=== PATIENT | male | born 1995 | race Caucasian/White ===

== ENCOUNTER 2021-07-22 12:59 | Emergency (ER) | payer OTHER, SELFPAY ==
--- NOTE | ~2021-07-22 | XR_ITS ---
EXAMINATION: XR CHEST CLINICAL INFORMATION: SOB and cough in COMPARISON: None TECHNIQUE: 2 views of the chest were obtained. FINDINGS: No significant abnormality is noted involving the heart, lungs, mediastinum, bony thorax or soft tissues. XR/XR chest 2V IMPRESSION: Unremarkable chest examination.
[2021-07-22 14:19] VITALS: BP 134/83; PULSE 95; RESP 16; TEMP 36.6; O2SAT 98; BMI 33.0
--- NOTE | 2021-07-22 14:21 | ECG_ITS ---
Test Reason : SOB Blood Pressure : / mmHG Vent. Rate : 086 BPM Atrial Rate : 086 BPM P-R Int : 136 ms QRS Dur : 090 ms QT Int : 352 ms P-R-T Axes : 071 059 050 degrees QTc Int : 421 ms Normal sinus rhythm with sinus arrhythmia Normal ECG When compared with ECG of 05-NOV-2019 06:26, [place] interval has decreased Referred By: Carla Vance Electronically Signed By:DAYDAY PINEDA
--- NOTE | 2021-07-22 14:22 | ED_ITS ---
HPI - SOB/Dyspnea General Chief Complaint: Dyspnea <CANDY Huggins - Last Filed: 07/22/21 14:24> Stated Complaint: ASTHMA CHEST TIGHTNESS <CANDY Huggins Last Filed: 07/22/21 14:24> Time Seen by Provider: 07/22/21 14:19 <CANDY Huggins - Last Filed: 07/22/21 14:24> Source: patient <Kassidy Cruz DO - Last Filed: 07/22/21 21:54> Mode of arrival: ambulatory <Kassidy Cruz DO - Last Filed: 07/22/21 21:54> Limitations: no limitations <Kassidy Cruz DO - Last Filed: 07/22/21 21:54> History of Present Illness MD elicited complaint: shortness of breath and asthma attack <Kassidy Cruz DO - Last Filed: 07/22/21 21:54> Pertinent past history: asthma <Kassidy Cruz DO - Last Filed: 07/22/21 21:54> Onset (ago): day(s) (Thursday) <Kassidy Cruz DO - Last Filed: 07/22/21 21:54> Timing: constant and progressively worsening <Kassidy Cruz DO - Last Filed: 07/22/21 21:54> Severity: moderate <Kassidy Cruz DO - Last Filed: 07/22/21 21:54> Exacerbating factors: exertion and coughing <Kassidy Cruz DO - Last Filed: 07/22/21 21:54> Relieving factors: nothing <Kassidy Cruz DO - Last Filed: 07/22/21 21:54> Known history of: asthma <Kassidy Cruz DO - Last Filed: 07/22/21 21:54> Associated symptoms: cough and wheezing <Kassidy Cruz DO - Last Filed: 07/22/21 21:54> Treatment prior to arrival: other (tried his INh with little relief) <Kassidy Cruz DO - Last Filed: 07/22/21 21:54> Related Data Home Medications: Previous Rx's Medication Instructions Recorded albuterol sulfate 2.5 mg INHALATION Q4-6H PRN #75 ml 07/22/21 prednisone 20 mg tablet 60 mg PO DAILY 5 Days #15 tab 07/22/21 <CANDY Huggins - Last Filed: 07/22/21 14:24> Allergies/Adverse Reactions: Allergies Allergy/AdvReac Type Severity Reaction Status Date / Time No Known Allergies Allergy Unverified 07/26/20 16:13 [No Known Allergies*] <CANDY Huggins - Last Filed: 07/22/21 14:24> Review of Systems Review of Systems: Constitutional : No Fever, No Chills ENT/Mouth : No Hoarseness, No sore throat, No Rhinorrhea Eyes: No Redness, No Discharge, No Vision Changes Cardiovascular : pos Chest tightness, positive SOB, positive Dyspnea on Exertion, No Edema Respiratory : positive Cough, No Sputum, positive Wheezing, Gastrointestinal : No Nausea, No Vomiting, No Diarrhea, No abdominal Pain Genitourinary : No Dysuria, No Hematuria Musculoskeletal : No joint pain, No Myalgias Skin : No rash Neuro : No Weakness, No Numbness, No Headache Psych : No anxiety, depression Heme/Lymph: No Bruising, No Bleeding Endocrine : No Polyuria, No Polydipsia All other systems reviewed and are negative <Kassidy Cruz DO - Last Filed: 07/22/21 21:54> [facility] Past Medical History Attestation statement: The following information was validated with the patient. <Kassidy Cruz DO - Last Filed: 07/22/21 21:54> Medical History: Medical History Asthma <CANDY Huggins - Last Filed: 07/22/21 14:24> Social History Social History: Social History (Updated 07/22/21 @ 20:19 by Kassidy Cruz DO) Alcohol intake: current Alcohol intake frequency: holidays/special occasions on ly Patient Tobacco Use Status: Never used Tobacco Use of substances other than those prescribed or required for medical reasons: Yes Substance Use Type: Marijuana Advance Directives: No <CANDY Huggins - Last Filed: 07/22/21 14:24> Physical Exam Vital Signs: Vital Signs: Last Vital Signs Temp 97.5 F 07/22/21 19:13 Pulse 114 H 07/23/21 00:23 Resp 21 H 07/22/21 22:50 BP 121/65 07/23/21 00:23 Pulse Ox 94 07/23/21 00:23 Body Mass Index 33.0 <CANDY Huggins - Last Filed: 07/22/21 14:24> Vital Signs: Last Vital Signs Temp 97.5 F 07/22/21 19:13 Pulse 114 H 07/23/21 00:23 Resp 21 H 07/22/21 22:50 BP 121/65 07/23/21 00:23 Pulse Ox 94 07/23/21 00:23 Body Mass Index 33.0 <Kassidy Cruz DO - Last Filed: 07/22/21 21:54> Vital Signs: Last Vital Signs Temp 97.5 F 07/22/21 19:13 Pulse 114 H 07/23/21 00:23 Resp 21 H 07/22/21 22:50 BP 121/65 07/23/21 00:23 Pulse Ox 94 07/23/21 00:23 Body Mass Index 33.0 <Sydnie Cotto MD - Last Filed: 07/23/21 01:19> Appearance: Alert. Oriented X3. No acute distress. Eyes: Pupils equal, round and reactive to light. ENT: Pharynx normal. Neck: Normal inspection. Neck supple. CVS: Normal heart rate and rhythm. Pulses normal. Respiratory: No respiratory distress. Breath sounds decreased throughout with wheezes Abdomen: Soft and non-tender. Skin: Skin warm and dry. Normal skin color. Normal skin turgor. Extremities: No lower extremity edema. No calf ttp Neuro: Oriented X 3. No motor deficit. No sensory deficit. <Kassidy Cruz DO - Last Filed: 07/22/21 21:54> Course Course Course Narrative: 14:20pm - 26-year-old male with a past medical history of asthma presenting to the ED with complaints of body aches, chills, cough, wheezing, shortness of breath and chest tightness for the past few days worse today. Denies recent travel or sick contacts. On exam patient is in mild respiratory distress due to decreased breath sounds and inspiratory and expiratory wheezing throughout although no accessory muscle usage/trismus/drooling/stridor noted. Otherwise no other acute distress. Vital signs are stable within normal limits. His oxygen saturations 98% on room air. Therefore at this time patient was sent back to the waiting room and he will be evaluated in the main ED. Labs, chest x-ray and EKG ordered at this time along with IV steroids and 1 hour long breathing treatment. <CANDY Huggins - Last Filed: 07/22/21 14:24> 14:20pm - 26-year-old male with a past medical history of asthma presenting to the ED with complaints of body aches, chills, cough, wheezing, shortness of breath and chest tightness for the past few days worse today. Denies recent travel or sick contacts. On exam patient is in mild respiratory distress due to decreased breath sounds and inspiratory and expiratory wheezing throughout although no accessory muscle usage/trismus/drooling/stridor noted. Otherwise no other acute distress. Vital signs are stable within normal limits. His oxygen saturations 98% on room air. Therefore at this time patient was sent back to the waiting room and he will be evaluated in the main ED. Labs, chest x-ray and EKG ordered at this time along with IV steroids and 1 hour long breathing treatment. he is improved 95% on RA, he is still tachycardic from the neb treatment signed out pending improvement to Dr. Cotto <Kassidy Cruz DO - Last Filed: 07/22/21 21:54> Reevaluation(s) Reevaluation #1: On re-evaluation patient is feeling much better and on review of all investigations as well as treatments patient is stable for discharge. <Sydnie Cotto MD - Last Filed: 07/23/21 01:19> MDM - SOB/Dyspnea MDM Narrative Medical decision making narrative: 26 yo male with hx of asthma no prior intubations here with URI and asthma since Thursday he is not vaccinated - at this time will need labs, CXR, COVID swab, hour long neb, IV steroids - dispo per results and improvement <Kassidy Cruz DO - Last Filed: 07/22/21 21:54> Lab Data Result diagrams: : 07/22/21 14:33 07/22/21 14:33 <CANDY Huggins - Last Filed: 07/22/21 14:24> Labs: Lab Results 07/22/21 07/22/21 07/22/21 Range/Units 14:33 14:33 14:33 WBC 7.7 (4.8-10.8) X10*3/uL RBC 4.90 (4.60-5.80) X10*6/uL Hgb 14.3 (14.0-18.0) g/dl Hct 42.4 (42-52) % MCV 86.5 (80-98) fL MCH 29.2 (27.0-33.0) pg MCHC 33.7 (31.0-36.0) g/dl RDW 12.5 (11.0-16.0) % Plt Count 275 (160-400) X10*3/uL MPV 10.4 (9.4-12.4) fL Immature Gran % (Auto) 0.3 (0.0-0.4) % Neut % (Auto) 77.8 H (45-73) % Lymph % (Auto) 12.3 L (20-40) % [place] % (Auto) 6.8 (2-11) % Eos % (Auto) 2.7 (0-4) % Baso % (Auto) 0.1 (0-2) % Lymph # (Auto) 1.0 L (1.2-4.9) X10*3/uL [place] # (Auto) 0.5 (0.1-1.2) X10*3/uL Eos # (Auto) 0.2 (0.0-0.4) X10*3/uL Baso # (Auto) 0.0 (0.0-0.2) X10*3/uL Abs Immat Gran (auto) 0.02 (0.00-0.03) X10*3/uL Absolute Neuts (auto) 6.0 (2.0-8.3) X10*3/uL Absolute Nucleated RBC 0.000 (0.0-0.012) X10*3/uL Nucleated RBC % (auto) 0.0 (0.0-0.2) /100WBC Hold Purple Top PT 12.3 (9.9-13.0) SEC INR 1.1 (0.9-1.1) Sodium 141 (135-145) mmol/L Potassium 4.1 (3.3-5.1) mmol/L Chloride 107 (96-108) mmol/L Carbon Dioxide 27 (22-29) mmol/L Anion Gap 11 L (12-20) BUN 8 L (9-16) mg/dL Creatinine 0.87 (0.5-1.4) mg/dL Estim Creat Clear Calc 134.9 Estimated GFR > 60 Random Glucose 111 (60-115) mg/dL Calcium 10.2 (8.4-10.2) mg/dL Magnesium 2.3 (1.6-2.6) mg/dL Total Bilirubin 0.5 (0.0-1.0) mg/dL AST 25 (5-37) U/L ALT 31 (0-40) U/L Alkaline Phosphatase 59 (39-117) U/L Total Protein 8.2 H (6.5-8.0) g/dL Albumin 4.6 (3.5-5.0) g/dL Urine Color Urine Appearance Urine pH (5.0-8.0) Ur Specific [place] (1.005-1.025) Urine Protein (NEG-TRACE) MG/DL Urine Glucose (UA) (NEG) MG/DL Urine Ketones (NEG) MG/DL Urine Blood (NEG) Urine Nitrite (NEG) Ur Leukocyte Esterase (NEG) COVID-19 (ENZO) (Negative) COVID-19 Clin Com 07/22/21 07/22/21 07/23/21 Range/Units 14:33 20:18 00:45 WBC (4.8-10.8) X10*3/uL RBC (4.60-5.80) X10*6/uL Hgb (14.0-18.0) g/dl Hct (42-52) % MCV (80-98) fL MCH (27.0-33.0) pg MCHC (31.0-36.0) g/dl RDW (11.0-16.0) % Plt Count (160-400) X10*3/uL MPV (9.4-12.4) fL Immature Gran % (Auto) (0.0-0.4) % Neut % (Auto) (45-73) % Lymph % (Auto) (20-40) % [place] % (Auto) (2-11) % Eos % (Auto) (0-4) % Baso % (Auto) (0-2) % Lymph # (Auto) (1.2-4.9) X10*3/uL [place] # (Auto) (0.1-1.2) X10*3/uL Eos # (Auto) (0.0-0.4) X10*3/uL Baso # (Auto) (0.0-0.2) X10*3/uL Abs Immat Gran (auto) (0.00-0.03) X10*3/uL Absolute Neuts (auto) (2.0-8.3) X10*3/uL Absolute Nucleated RBC (0.0-0.012) X10*3/uL Nucleated RBC % (auto) (0.0-0.2) /100WBC Hold Purple Top SEE NOTE PT (9.9-13.0) SEC INR (0.9-1.1) Sodium (135-145) mmol/L Potassium (3.3-5.1) mmol/L Chloride (96-108) mmol/L Carbon Dioxide (22-29) mmol/L Anion Gap (12-20) BUN (9-16) mg/dL Creatinine (0.5-1.4) mg/dL Estim Creat Clear Calc Estimated GFR Random Glucose (60-115) mg/dL Calcium (8.4-10.2) mg/dL Magnesium (1.6-2.6) mg/dL Total Bilirubin (0.0-1.0) mg/dL AST (5-37) U/L ALT (0-40) U/L Alkaline Phosphatase (39-117) U/L Total Protein (6.5-8.0) g/dL Albumin (3.5-5.0) g/dL Urine Color YELLOW Urine Appearance HAZY Urine pH 6.0 (5.0-8.0) Ur Specific [place] >= 1.030 H (1.005-1.025) Urine Protein NEG (NEG-TRACE) MG/DL Urine Glucose (UA) NEG (NEG) MG/DL Urine Ketones NEG (NEG) MG/DL Urine Blood NEG (NEG) Urine Nitrite NEG (NEG) Ur Leukocyte Esterase NEG (NEG) COVID-19 (ENZO) Negative (Negative) COVID-19 Clin Com See Note <CANDY Huggins - Last Filed: 07/22/21 14:24> Lab Results 07/22/21 07/22/21 07/22/21 Range/Units 14:33 14:33 14:33 WBC 7.7 (4.8-10.8) X10*3/uL RBC 4.90 (4.60-5.80) X10*6/uL Hgb 14.3 (14.0-18.0) g/dl Hct 42.4 (42-52) % MCV 86.5 (80-98) fL MCH 29.2 (27.0-33.0) pg MCHC 33.7 (31.0-36.0) g/dl RDW 12.5 (11.0-16.0) % Plt Count 275 (160-400) X10*3/uL MPV 10.4 (9.4-12.4) fL Immature Gran % (Auto) 0.3 (0.0-0.4) % Neut % (Auto) 77.8 H (45-73) % Lymph % (Auto) 12.3 L (20-40) % [place] % (Auto) 6.8 (2-11) % Eos % (Auto) 2.7 (0-4) % Baso % (Auto) 0.1 (0-2) % Lymph # (Auto) 1.0 L (1.2-4.9) X10*3/uL [place] # (Auto) 0.5 (0.1-1.2) X10*3/uL Eos # (Auto) 0.2 (0.0-0.4) X10*3/uL Baso # (Auto) 0.0 (0.0-0.2) X10*3/uL Abs Immat Gran (auto) 0.02 (0.00-0.03) X10*3/uL Absolute Neuts (auto) 6.0 (2.0-8.3) X10*3/uL Absolute Nucleated RBC 0.000 (0.0-0.012) X10*3/uL Nucleated RBC % (auto) 0.0 (0.0-0.2) /100WBC Hold Purple Top PT 12.3 (9.9-13.0) SEC INR 1.1 (0.9-1.1) Sodium 141 (135-145) mmol/L Potassium 4.1 (3.3-5.1) mmol/L Chloride 107 (96-108) mmol/L Carbon Dioxide 27 (22-29) mmol/L Anion Gap 11 L (12-20) BUN 8 L (9-16) mg/dL Creatinine 0.87 (0.5-1.4) mg/dL Estim Creat Clear Calc 134.9 Estimated GFR > 60 Random Glucose 111 (60-115) mg/dL Calcium 10.2 (8.4-10.2) mg/dL Magnesium 2.3 (1.6-2.6) mg/dL Total Bilirubin 0.5 (0.0-1.0) mg/dL AST 25 (5-37) U/L ALT 31 (0-40) U/L Alkaline Phosphatase 59 (39-117) U/L Total Protein 8.2 H (6.5-8.0) g/dL Albumin 4.6 (3.5-5.0) g/dL Urine Color Urine Appearance Urine pH (5.0-8.0) Ur Specific [place] (1.005-1.025) Urine Protein (NEG-TRACE) MG/DL Urine Glucose (UA) (NEG) MG/DL Urine Ketones (NEG) MG/DL Urine Blood (NEG) Urine Nitrite (NEG) Ur Leukocyte Esterase (NEG) COVID-19 (ENZO) (Negative) COVID-19 Clin Com 07/22/21 07/22/21 07/23/21 Range/Units 14:33 20:18 00:45 WBC (4.8-10.8) X10*3/uL RBC (4.60-5.80) X10*6/uL Hgb (14.0-18.0) g/dl Hct (42-52) % MCV (80-98) fL MCH (27.0-33.0) pg MCHC (31.0-36.0) g/dl RDW (11.0-16.0) % Plt Count (160-400) X10*3/uL MPV (9.4-12.4) fL Immature Gran % (Auto) (0.0-0.4) % Neut % (Auto) (45-73) % Lymph % (Auto) (20-40) % [place] % (Auto) (2-11) % Eos % (Auto) (0-4) % Baso % (Auto) (0-2) % Lymph # (Auto) (1.2-4.9) X10*3/uL [place] # (Auto) (0.1-1.2) X10*3/uL Eos # (Auto) (0.0-0.4) X10*3/uL Baso # (Auto) (0.0-0.2) X10*3/uL Abs Immat Gran (auto) (0.00-0.03) X10*3/uL Absolute Neuts (auto) (2.0-8.3) X10*3/uL Absolute Nucleated RBC (0.0-0.012) X10*3/uL Nucleated RBC % (auto) (0.0-0.2) /100WBC Hold Purple Top SEE NOTE PT (9.9-13.0) SEC INR (0.9-1.1) Sodium (135-145) mmol/L Potassium (3.3-5.1) mmol/L Chloride (96-108) mmol/L Carbon Dioxide (22-29) mmol/L Anion Gap (12-20) BUN (9-16) mg/dL Creatinine (0.5-1.4) mg/dL Estim Creat Clear Calc Estimated GFR Random Glucose (60-115) mg/dL Calcium (8.4-10.2) mg/dL Magnesium (1.6-2.6) mg/dL Total Bilirubin (0.0-1.0) mg/dL AST (5-37) U/L ALT (0-40) U/L Alkaline Phosphatase (39-117) U/L Total Protein (6.5-8.0) g/dL Albumin (3.5-5.0) g/dL Urine Color YELLOW Urine Appearance HAZY Urine pH 6.0 (5.0-8.0) Ur Specific [place] >= 1.030 H (1.005-1.025) Urine Protein NEG (NEG-TRACE) MG/DL Urine Glucose (UA) NEG (NEG) MG/DL Urine Ketones NEG (NEG) MG/DL Urine Blood NEG (NEG) Urine Nitrite NEG (NEG) Ur Leukocyte Esterase NEG (NEG) COVID-19 (ENZO) Negative (Negative) COVID-19 Clin Com See Note <Kassidy Cruz, DO - Last Filed: 07/22/21 21:54> Lab Results 07/22/21 07/22/21 07/22/21 Range/Units 14:33 14:33 14:33 WBC 7.7 (4.8-10.8) X10*3/uL RBC 4.90 (4.60-5.80) X10*6/uL Hgb 14.3 (14.0-18.0) g/dl Hct 42.4 (42-52) % MCV 86.5 (80-98) fL MCH 29.2 (27.0-33.0) pg MCHC 33.7 (31.0-36.0) g/dl RDW 12.5 (11.0-16.0) % Plt Count 275 (160-400) X10*3/uL MPV 10.4 (9.4-12.4) fL Immature Gran % (Auto) 0.3 (0.0-0.4) % Neut % (Auto) 77.8 H (45-73) % Lymph % (Auto) 12.3 L (20-40) % [place] % (Auto) 6.8 (2-11) % Eos % (Auto) 2.7 (0-4) % Baso % (Auto) 0.1 (0-2) % Lymph # (Auto) 1.0 L (1.2-4.9) X10*3/uL [place] # (Auto) 0.5 (0.1-1.2) X10*3/uL Eos # (Auto) 0.2 (0.0-0.4) X10*3/uL Baso # (Auto) 0.0 (0.0-0.2) X10*3/uL Abs Immat Gran (auto) 0.02 (0.00-0.03) X10*3/uL Absolute Neuts (auto) 6.0 (2.0-8.3) X10*3/uL Absolute Nucleated RBC 0.000 (0.0-0.012) X10*3/uL Nucleated RBC % (auto) 0.0 (0.0-0.2) /100WBC Hold Purple Top PT 12.3 (9.9-13.0) SEC INR 1.1 (0.9-1.1) Sodium 141 (135-145) mmol/L Potassium 4.1 (3.3-5.1) mmol/L Chloride 107 (96-108) mmol/L Carbon Dioxide 27 (22-29) mmol/L Anion Gap 11 L (12-20) BUN 8 L (9-16) mg/dL Creatinine 0.87 (0.5-1.4) mg/dL Estim Creat Clear Calc 134.9 Estimated GFR > 60 Random Glucose 111 (60-115) mg/dL Calcium 10.2 (8.4-10.2) mg/dL Magnesium 2.3 (1.6-2.6) mg/dL Total Bilirubin 0.5 (0.0-1.0) mg/dL AST 25 (5-37) U/L ALT 31 (0-40) U/L Alkaline Phosphatase 59 (39-117) U/L Total Protein 8.2 H (6.5-8.0) g/dL Albumin 4.6 (3.5-5.0) g/dL Urine Color Urine Appearance Urine pH (5.0-8.0) Ur Specific [place] (1.005-1.025) Urine Protein (NEG-TRACE) MG/DL Urine Glucose (UA) (NEG) MG/DL Urine Ketones (NEG) MG/DL Urine Blood (NEG) Urine Nitrite (NEG) Ur Leukocyte Esterase (NEG) COVID-19 (ENZO) (Negative) COVID-19 Clin Com 07/22/21 07/22/21 07/23/21 Range/Units 14:33 20:18 00:45 WBC (4.8-10.8) X10*3/uL RBC (4.60-5.80) X10*6/uL Hgb (14.0-18.0) g/dl Hct (42-52) % MCV (80-98) fL MCH (27.0-33.0) pg MCHC (31.0-36.0) g/dl RDW (11.0-16.0) % Plt Count (160-400) X10*3/uL MPV (9.4-12.4) fL Immature Gran % (Auto) (0.0-0.4) % Neut % (Auto) (45-73) % Lymph % (Auto) (20-40) % [place] % (Auto) (2-11) % Eos % (Auto) (0-4) % Baso % (Auto) (0-2) % Lymph # (Auto) (1.2-4.9) X10*3/uL [place] # (Auto) (0.1-1.2) X10*3/uL Eos # (Auto) (0.0-0.4) X10*3/uL Baso # (Auto) (0.0-0.2) X10*3/uL Abs Immat Gran (auto) (0.00-0.03) X10*3/uL Absolute Neuts (auto) (2.0-8.3) X10*3/uL Absolute Nucleated RBC (0.0-0.012) X10*3/uL Nucleated RBC % (auto) (0.0-0.2) /100WBC Hold Purple Top SEE NOTE PT (9.9-13.0) SEC INR (0.9-1.1) Sodium (135-145) mmol/L Potassium (3.3-5.1) mmol/L Chloride (96-108) mmol/L Carbon Dioxide (22-29) mmol/L Anion Gap (12-20) BUN (9-16) mg/dL Creatinine (0.5-1.4) mg/dL Estim Creat Clear Calc Estimated GFR Random Glucose (60-115) mg/dL Calcium (8.4-10.2) mg/dL Magnesium (1.6-2.6) mg/dL Total Bilirubin (0.0-1.0) mg/dL AST (5-37) U/L ALT (0-40) U/L Alkaline Phosphatase (39-117) U/L Total Protein (6.5-8.0) g/dL Albumin (3.5-5.0) g/dL Urine Color YELLOW Urine Appearance HAZY Urine pH 6.0 (5.0-8.0) Ur Specific [place] >= 1.030 H (1.005-1.025) Urine Protein NEG (NEG-TRACE) MG/DL Urine Glucose (UA) NEG (NEG) MG/DL Urine Ketones NEG (NEG) MG/DL Urine Blood NEG (NEG) Urine Nitrite NEG (NEG) Ur Leukocyte Esterase NEG (NEG) COVID-19 (ENZO) Negative (Negative) COVID-19 Clin Com See Note <Sydnie Cotto MD - Last Filed: 07/23/21 01:19> ECG Data Attestation: I personally reviewed and interpreted this ECG as follows: <Kassidy Cruz DO - Last Filed: 07/22/21 21:54> ECG interpretation date: 07/22/21 <Kassidy Cruz DO - Last Filed: 07/22/21 21:54> ECG interpretation time: 20:42 <Kassidy Cruz DO - Last Filed: 07/22/21 21:54> Interpretation: Rate: 86 Rhythm: NSR [place]: normal Normal P waves. Normal GAVI. Normal QRS complex. ST T wave : normal no NATY qTC: normal prior studies: no acute ischemia The study has been interpreted contemporaneously by me. . <Kassidy Cruz DO - Last Filed: 07/22/21 21:54> Discharge Plan Discharge Clinical Impression: Asthma with exacerbation Qualifiers: Asthma severity: moderate Asthma persistence: persistent Qualified Code(s): J45.41 - Moderate persistent asthma with (acute) exacerbation <CANDY Huggins - Last Filed: 07/22/21 14:24> Patient Disposition: Home, Self-Care <CANDY Huggins - Last Filed: 07/22/21 14:24> Instructions: Asthma (ED) <CANDY Huggins - Last Filed: 07/22/21 14:24> Additional Instructions: YOUR COVID TEST WAS NEGATIVE <CANDY Huggins - Last Filed: 07/22/21 14:24> Prescriptions: New albuterol sulfate 2.5 mg /3 mL (0.083 %) solution for nebulization 2.5 mg inhalation Q4-6H PRN (Reason: bronchospasm) Qty: 75 RF: 0 prednisone 20 mg tablet 60 mg PO DAILY 5 Days Qty: 15 RF: 0 <CANDY Huggins - Last Filed: 07/22/21 14:24> Referrals: Physician,Unknown [Primary Care Provider] - 2 days <CANDY Huggins - Last Filed: 07/22/21 14:24> Stand Alone Forms: Work/School Release <CANDY Huggins - Last Filed: 07/22/21 14:24>
[2021-07-22 14:41] LABS: MANUAL DIFF FLAG NO
[2021-07-22 14:43] LABS: Basophils Percent Auto 0.1 % (0-2); Eosinophils Absolute Auto 0.2 X10*3/uL (0.0-0.4); Eosinophils Percent Auto 2.7 % (0-4); Hematocrit 42.4 % (42-52); Hemoglobin 14.3 g/dl (14.0-18.0); Imm Gran Abs Auto 0.02 X10*3/uL (0.00-0.03); Imm Gran Pct Auto 0.3 % (0.0-0.4); Lymphocytes Percent Auto 12.3 % (20-40); Mean Corpuscular HGB Conc 33.7 g/dl (31.0-36.0); Mean Corpuscular Hemoglobin 29.2 pg (27.0-33.0); Mean Corpuscular Volume 86.5 fL (80-98); Mean Platelet Volume 10.4 fL (9.4-12.4); Monocytes Absolute Auto 0.5 X10*3/uL (0.1-1.2); Monocytes Percent Auto 6.8 % (2-11); Neutrophils Percent Auto 77.8 % (45-73); Platelet Count 275 X10*3/uL (160-400); Red Cell Distribution Width 12.5 % (11.0-16.0); White Blood Count 7.7 X10*3/uL (4.8-10.8)
[2021-07-22 15:01] LABS: INTERNATIONAL NORM RATIO 1.1 (0.9-1.1); Prothrombin Time 12.3 SEC (9.9-13.0)
[2021-07-22 15:05] LABS: Alanine Aminotransferase 31 U/L (0-40); Albumin Level 4.6 g/dL (3.5-5.0); Alkaline Phosphatase 59 U/L (39-117); Anion Gap 11 (12-20); Aspartate Amino Transferase 25 U/L (5-37); Bilirubin Total 0.5 mg/dL (0.0-1.0); Blood Urea Nitrogen 8 mg/dL (9-16); Calcium 10.2 mg/dL (8.4-10.2); Carbon Dioxide 27 mmol/L (22-29); Chloride 107 mmol/L (96-108); Creatinine Clr Calc Pharmacy 134.9; Estimated Glomerular Filt Rate > 60; Glucose Random 111 mg/dL (60-115); Magnesium 2.3 mg/dL (1.6-2.6); Potassium 4.1 mmol/L (3.3-5.1); Sodium 141 mmol/L (135-145); Total Protein 8.2 g/dL (6.5-8.0)
[2021-07-22 19:13] VITALS: BP 134/83; PULSE 103; RESP 16; TEMP 36.4; O2SAT 99
[2021-07-22] MEDS: Albuterol Sulfate (0.083%) 2.5 MG/3 ML VIAL.NEB 10 MG INHALE (20:10)
[2021-07-22 20:18] VITALS: BP 151/92; PULSE 132; RESP 20; O2SAT 95
[2021-07-22 20:44] LABS: COVID-19 Test Negative (Negative)
[2021-07-22] MEDS: dexAMETHasone sod phosphate 4 MG/ML VIAL 6 MG IVPUSH (21:02)
[2021-07-22] MEDS: methylPREDNISolone Sod Succ 125 MG/2 ML VIAL IVPUSH (21:16)
[2021-07-22] MEDS: 0.9 % Sodium Chloride 1,000 ML 999 ML IV (22:09)
[2021-07-22] MEDS: Magnesium Sulfate/H2O 2 GM/50 ML PIGGYBACK IV (22:09)
[2021-07-22 22:50] VITALS: BP 142/69; PULSE 116; RESP 21; O2SAT 95
[2021-07-23 00:23] VITALS: BP 121/65; PULSE 114; O2SAT 94
--- NOTE | 2021-07-23 00:29 | PC.NURSE ---
pt A&O, no sob of breath at this time. pt reports improvement after being medicated. Will continue to monitor at this time.
--- NOTE | 2021-07-23 00:40 | PC.NURSE ---
Pt oob to bathroom with no sob. UA collected and sent
[2021-07-23 00:52] LABS: Appearance Urine HAZY; Color Urine YELLOW; Glucose Urine UA NEG (NEG); Leukocyte Esterase Urine NEG (NEG); Nitrite Urine NEG (NEG); Specific Gravity - Urine >= 1.030 (1.005-1.025); UACC Culture Trigger NO; Urine Blood NEG (NEG); Urine Ketones NEG (NEG); Urine Protein NEG (NEG-TRACE)
== END 2021-07-23 01:36 | disposition home or self-care (01) ==
PROVIDERS: Physician Assistant Medical; Emergency Provider Emergency Medicine
DX: J45.41 Moderate persistent asthma with (acute) exacerbation (principal); R06.00 Dyspnea, unspecified; Z20.822 Contact with and (suspected) exposure to COVID-19; Z79.899 Other long term (current) drug therapy
CPT/HCPCS: 36415; 71046; 80053; 81003; 83735; 85025; 85610; 87635; 93005; 94640; 96365; 96366; 96375; 99284; 99285; J1100; J2930; J3475

== ENCOUNTER 2021-09-25 07:36 | Outpatient (REF) | payer OTHER, SELFPAY | END 2021-09-25 07:37 | disposition home or self-care (01) | LOC: HO.LAB 07:36 | PROVIDERS: Visit Provider Internal Medicine | DX: Z20.822 Contact with and (suspected) exposure to COVID-19 (principal) | CPT/HCPCS: C9803; U0003; U0005 ==

== ENCOUNTER 2021-12-30 17:01 | Emergency (ER) | payer SELFPAY ==
--- NOTE | ~2021-12-30 | XR_ITS ---
EXAMINATION: XR SHOULDER, LEFT CLINICAL INFORMATION: Pain, injury. COMPARISON: Chest radiograph dated from 07/22/2021. TECHNIQUE: Four views of the left shoulder. FINDINGS: The bones and soft tissues are normal. No fracture. Glenohumeral and acromioclavicular alignment is anatomic with normal joint space. No abnormal soft tissue calcifications. XR/XR shoulder LT min 2V IMPRESSION: Normal left shoulder.
[2021-12-30 19:05] VITALS: BP 127/84; PULSE 83; RESP 18; TEMP 37; O2SAT 96; BMI 32.8
--- NOTE | 2021-12-30 20:28 | ED_ITS ---
HPI - Extremity Problem General Chief complaint: Extremity Injury, Upper Stated complaint: shoulder pain/injury Time Seen by Provider: 12/30/21 20:22 Source: patient Mode of arrival: ambulatory Limitations: no limitations History of Present Illness HPI Narrative: 26-year-old male no known medical history presents with left shoulder pain status post moving a dresser yesterday. Patient tells me that he was moving a dresser knee felt like his shoulder popped out of place, shortly after he feels as though his shoulder popped back into place. He reports remanent shoulder pain/soreness. He tells me it is painful with movement better at rest. He denies numbness, tingling, severe pain. He tells me is able to move completely however it is painful. He tells me he is feeling better he does wants to ensure it is not out of place. MD Complaint: joint paint Onset (ago): day(s) (2) Pain Consistency: constant Location: left Quality: constant Radiation: none Relieving factors: immobilization Exacerbating factors: range of motion Associated symptoms: denies other symptoms Related Data Previous Rx's Medication Instructions Recorded albuterol sulfate 2.5 mg (3 mL) INHALATION Q4-6H PRN 07/22/21 #75 ml prednisone 20 mg tablet 60 mg PO DAILY 5 Days #15 tab 07/22/21 cyclobenzaprine 10 mg tablet 10 mg PO BEDTIME PRN #7 tab 12/30/21 lidocaine 5 % topical patch 1 patch TOPICAL DAILY PRN #15 ea 12/30/21 Allergies Allergy/AdvReac Type Severity Reaction Status Date / Time No Known Allergies Allergy Unverified 07/26/20 16:13 [No Known Allergies*] Review of Systems Review of Systems: Constitutional : No Weight loss, No Fever, No Chills, No Fatigue, No Malaise ENT/Mouth : No sore throat, No Rhinorrhea Eyes: No Eye Pain, No Swelling, No Redness Cardiovascular : No Chest Pain, No SOB, No Dyspnea on Exertion, No Orthopnea, No Edema, No Palpitations Respiratory : No Cough, No Sputum, No Wheezing Gastrointestinal : No Nausea, No Vomiting, No Diarrhea, No Constipation, No abdominal Pain, No Hematochezia, No Melena Genitourinary : No Dysuria, No Urinary Frequency, No Hematuria, Musculoskeletal : + joint pain, No Myalgias, No Joint Swelling Skin : No Skin Lesions, No rash Neuro : No Weakness, No Numbness, No Dizziness, No Headache Psych : No Anxiety/Panic, No Depression All other systems reviewed and are negative Yes all other systems are reviewed and are negative [facility] Past Medical History Attestation statement: The following information was validated with the patient. Source: old records reviewed and nursing notes reviewed Medical History Asthma Social History Social History Alcohol intake: current Alcohol intake frequency: holidays/special occasions only Patient Tobacco Use Status: Never used Tobacco Substance Use Type: Marijuana Advance Directives: No Advance Directives Information Provided: Yes Physical Exam Vital Signs: Vital Signs: Last Vital Signs Temp 98.6 F 12/30/21 19:05 Pulse 83 12/30/21 19:05 Resp 18 12/30/21 19:05 BP 127/84 12/30/21 19:05 Pulse Ox 96 12/30/21 19:05 BMI result Body Mass Index 32.8 VSS Appearance: Alert.? Oriented X3.? No acute distress.? Head: Normocephalic, atraumatic, no step-offs or deformities Eyes: Pupils equal, round and reactive to light.? ENT: Pharynx normal.? Neck: Normal inspection.? Neck supple.? CVS: Normal heart rate and rhythm.? Pulses normal.? Respiratory: No respiratory distress.? Breath sounds normal.? Abdomen: Soft and nontender.? Skin: Skin warm and dry.? Normal skin color.? Normal skin turgor.? Extremities: No lower extremity edema.? No calf ttp. 5/5 strength to bilateral upper and lower extremities bilateral upper extremities with 2+ radial pulses equal bilateral. Normal capillary refill to upper extremities. Back: No midline tenderness, no C-spine tenderness, full range of motion, no CVA tenderness bilaterally Neuro: Oriented X 3.? No motor deficit.? No sensory deficit. CN 2-12 intact Course Reevaluation(s) Reevaluation #1: Patient was placed in a sling neurovascularly intact educated him on worrisome signs and symptoms advised him to follow-up with his PCP and Ortho if symptoms do not improve in a week or 2. Comfortable discharge home. Time: 20:31 MDM - Extremity (Nontraumatic) MDM Narrative Medical decision making narrative: 2019 26-year-old male presents with left shoulder pain status post moving a dresser. Feels like it was dislocated however now he feels as though it back in place and he is is having some pain to the site. Worse with movement better at rest. Physical examination benign. Neurovascularly intact. No evident ligament or tendon involvement. Plan at this time is to place him in a sling for comfort, Toradol for pain. Medical Records Attestation: I reviewed the patient's medical records. Lab Data Attestation: I reviewed the patient's lab results. Critical Care Time Critical Care Time Critical Care Time: No Discharge Plan Discharge Clinical Impression: Shoulder strain Patient Disposition: Home, Self-Care Instructions: Muscle Strain (ED), How to Use a Sling (ED), Cold Compress or Soak (ED) Additional Instructions: Take your medications as prescribed. If you were prescribed antibiotics today, it is important that you take your medication to their entirety, do not skip any doses, do not finish them early. Follow-up with your primary care provider this week. Follow-up in a week with orthopedics if symptoms persist. You can take ibuprofen every 6 hours, Tylenol every 4 as needed for pain. Return to the emergency department with new or worsening symptoms. Such as numbness, tingling, chest pain, shortness of breath, fevers, chills, inability to move that extremity, worsening pain. In case of emergency call 911 Prescriptions: New cyclobenzaprine 10 mg tablet 10 mg PO BEDTIME PRN (Reason: muscle spasm) Qty: 7 0RF lidocaine 5 % adhesive patch,medicated 1 patch topical DAILY PRN (Reason: pain) Qty: 15 0RF Rx Instructions: leave on most painful area for up to 12 hrs No Action albuterol sulfate 2.5 mg /3 mL (0.083 %) solution for nebulization 2.5 mg inhalation Q4-6H PRN (Reason: bronchospasm) Qty: 75 0RF prednisone 20 mg tablet 60 mg PO DAILY 5 Days Qty: 15 0RF Referrals: Marko Mcclellan MD [Physician] - 1 week Physician,None [Primary Care Provider] - 2 days Stand Alone Forms: Work/School Release
[2021-12-30] MEDS: Ketorolac Tromethamine 30 MG/ML VIAL IM (20:34)
== END 2021-12-30 21:06 | disposition home or self-care (01) ==
PROVIDERS: Emergency Provider Internal Medicine
DX: S46.912A Strain of unspecified muscle, fascia and tendon at shoulder and upper arm level, left arm, initial encounter (principal); M25.512 Pain in left shoulder; X50.0XXA Overexertion from strenuous movement or load, initial encounter; X50.1XXA Overexertion from prolonged static or awkward postures, initial encounter; X50.9XXA Other and unspecified overexertion or strenuous movements or postures, initial encounter; Y93.9 Activity, unspecified; Y92.009 Unspecified place in unspecified non-institutional (private) residence as the place of occurrence of the external cause; Y99.9 Unspecified external cause status; Z79.899 Other long term (current) drug therapy
CPT/HCPCS: 73030; 96372; 99283; 99284; J1885